=== PATIENT | female | born 1955 | race Caucasian/White ===

== ENCOUNTER 2017-02-07 10:06 | Outpatient (CLI) ==
--- NOTE | 2017-02-07 11:02 | DI ---
EXAM: PA and lateral views of the chest HISTORY: Short of air COMPARISON: 07/14/2009 FINDINGS: The lungs are borderline hyperexpanded. No focal consolidation, pleural effusion or pneumothorax is seen. The cardiomediastinal silhouette is within normal limits. IMPRESSION: No acute cardiopulmonary findings.
--- NOTE | 2017-02-07 11:12 | US ---
EXAM: Carotid ultrasound HISTORY: Abdominal pain, syncope with shortness of air COMPARISON: None TECHNIQUE: Carotid ultrasound was performed using gilbert scale, color, and Doppler imaging was perfor med. FINDINGS: Right carotid: There is mild atherosclerosis without significant visualized area of narrowing. Pea k systolic velocity measurement in the right internal carotid artery is 1.0 meters per second. End- diastolic velocity measurement in the right internal carotid artery is 0.3 meters per second. Right internal to common carotid artery peak systolic velocity ratio is 1.2. Flow in the right vertebral artery is antegrade. Left carotid: There is mild atherosclerosis without significant visualized area of narrowing. Peak systolic velocity measurement in the left internal carotid artery is 1.2 meters per second. End-di astolic velocity measurement in the left internal carotid artery is 0.6 meters per second. Left int ernal to common carotid artery peak systolic velocity ratio measures 1.8. Flow in the left vertebra l artery is antegrade. IMPRESSION: 1. Right internal carotid: No hemodynamically significant stenosis 2. Left internal carotid: No hemodynamically significant stenosis
--- NOTE | 2017-02-07 11:13 | US ---
EXAM: Ultrasound Aorta HISTORY: Abdominal pain and shortness of air COMPARISON: None TECHNIQUE: Ultrasound aorta was performed. FINDINGS: Atherosclerosis. Measurements are AP by transverse. Proximal aorta: 2.6 x 2.0 cm Mid aorta: 1.7 x 1.8 cm Distal aorta: 1.4 x 1.6 cm Right iliac: 0.8 x 0.8 cm Left iliac: 0.8 x 0.8 cm IMPRESSION: No abdominal aortic aneurysm.
--- NOTE | 2017-02-10 12:16 | HOLTER ---
PATIENT INFORMATION AND COMMENTS Indications: NEAR SYNCOPE __ Patient Medications: NONE __ Pre-procedure Summary: Protocol: Standard Heart Rate Started: 02/07/17 1116 Minimum: 55 BPM Weight: 139 LBS Ended: 02/08/17 1043 Maximum: 174 BPM Height: 67" Duration: 23 HRS 27 MIN Average: 90 BPM _ INTERPRETATIONS/OBSERVATIONS: 1. BASIC RHYTHM: SINUS, RATE 60 TO 170 BPM, AVERAGE 90 BPM 2. INFREQUENT PAC'S AND PVC'S 3. TWO RUNS OF SVT WITH RATE OF 170 BPM (12 BEATS) 4. NO ST-T WAVE CHANGES 5. NO CORRELATION WITH ACTIVITY LOG MTDD
== END 2017-02-07 10:07 | disposition home or self-care (01) ==
LOC: RAD 10:06
PROVIDERS: ATTEND Internal Medicine
DX: R55 Syncope and collapse (principal); R10.9 Unspecified abdominal pain
CPT/HCPCS: 76775

== ENCOUNTER 2018-01-20 12:38 | Emergency (ER) | payer OTHER ==
[2018-01-20 12:46] VITALS: BP 138/81; TEMP 97.6; BMI 21.9
--- NOTE | 2018-01-20 14:03 | ED.PDOC ---
General ED Provider: Dr. TEMITOPE MONROY Chief Complaint: Non-specific Complaint Stated Complaint: Sustained puncture wound to the dorsal aspect of her lt mid forearm when she was cleaning [employer] and accidently brushed against a loose piece of wood and a splinter. Recognized today that she had a approximately 6 cm area of suspected retained wood Time Seen by Physician: 15:15 Mode of Arrival: Walk-In Information Source: Patient Exam Limitations: No limitations Primary Care Provider: JORGE REYNA Nursing and Triage Documentation Reviewed and Agree: Yes Reviewed sepsis parameters & appropriate labs ordered?: Yes System Inflammatory Response Syndrome: Not Applicable Sepsis Protocol: For patient's 13 years and over: Temp is 96.8 and below OR 101 and greater Pulse >90 BPM Resp >20/minute Acutely Altered Mental Status Are patient's symptoms suggestive of a new infection, such as: -Pneumonia -Skin, Soft Tissue -Endocarditis -UTI -Bone, Joint Infection -Implantable Device -Acute Abdominal Infection -Wound Infection -Meningitis -Blood Stream Catheter Infection -Unknown System Inflammatory Response Syndrome: Not Applicable Trauma/Injury Complaint Exam - Trauma Complaint/Exam Location of Pain or Injury: Reports: LUE, Other (puncture wound-foreign object imbedde in subcutaneous region ) Mechanism of Injury: Reports: Penetrating trauma Symptoms Are: Still present Timing of Treatment: Immediate Initial Severity: Mild Current Severity: Mild Character: Reports: Burning, Sharp, Stabbing Aggravating: Reports: Movement Alleviating: Reports: Rest Associated Signs and Symptoms: Denies: LOC, Confusion, Memory loss, Lethargy, Vomiting, Bleeding, Bruising, Swelling, Extremity disuse, Painful respiration, Hoarseness, Dysphagia, Hemoptysis, Significant blood loss : No Penetrating Injury Risk Factors: Reports: None Differential Diagnoses: Other (puncture) Review of Systems - Review Of Systems Constitutional: Reports: No symptoms Eyes: Reports: No symptoms Ears, Nose, Mouth, Throat: Reports: No symptoms Respiratory: Reports: No symptoms Cardiac: Reports: No symptoms GI: Reports: No symptoms : Reports: No symptoms Musculoskeletal: Reports: No symptoms Skin: Reports: No symptoms, Bruising Neurological: Reports: No symptoms Endocrine: Reports: No symptoms Hematologic/Lymphatic: Reports: No symptoms All Other Systems: Reviewed and Negative Past Medical History - Past Medical History Previously Healthy: Yes Endocrine: Reports: None Cardiovascular: Reports: None Respiratory: Reports: None Hematological: Reports: None Gastrointestinal: Reports: None Genitourinary: Reports: None Neuro/Psych: Reports: None Musculoskeletal: Reports: None Cancer: Reports: None Last Menstrual Period: none - Surgical History General Surgical History: Reports: None - Family History Family History: Reports: None - Social History Smoking Status: Current every day smoker, Light tobacco smoker Hx Substance Use: No Alcohol Screening: None - Immunizations Tetanus Shot up to Date: No Physical Exam - Physical Exam Appearance: Well-appearing, No pain distress, Well-nourished Eyes: ETHAN, EOMI, Conjunctiva clear ENT: Ears normal, Nose normal, Oropharynx normal Respiratory: Airway patent, Breath sounds clear, Breath sounds equal, Respirations nonlabored Cardiovascular: RRR, Pulses normal, No rub, No murmur GI/: Soft, Nontender, No masses, Bowel sounds normal, No Organomegaly Musculoskeletal: Normal strength, ROM intact, No edema, No calf tenderness Skin: Warm (puncture wound noted ), Dry, Normal color Neurological: Sensation intact, Motor intact, Reflexes intact, Cranial nerves intact, Alert, Oriented Psychiatric: Affect appropriate, Mood appropriate Procedures - Foreign Body Removal Location of Foreign Object: Dorsal aspect Lt Midforearm Foreign Object: 5 cm wooded spinter Depth of Object: subcuticular Type of Anesthesia: Local (1 %Lidocaine) Medication Used: Yes: Lidocaine Prep: Saline, Betadine, Hibiclens, Scrub Irrigation: Yes Skin Incised: Yes (1 cm dorsolateral aspect of area of foreign object) Instruments Used: Yes: Forceps Foreign Body Identified and Removed: Yes (Sutured with 1 simple suture 3-0 Nylon ) Re-Evaluation - Re-Evaluation Time of Re-Evaluation: 16:15 Status: Improved Vital Signs Stable: Yes Appearance: NAD Lungs: Clear Skin: Warm and Dry Neuro: Alert and Oriented X3 CV: RRR Critical Care Note - Critical Care Note Total Time (mins): 0 Course - Course Orders, Labs, Meds: Orders Category Date Time Status CT FOREARM LEFT WO CONTRAST Stat RADS 01/20/18 14:05 Completed Vital Signs: Temp Pulse Resp BP Pulse Ox 01/20/18 12:41 97.6 F 65 16 138/81 98 Departure - Departure Time of Disposition: 15:50 Disposition: HOME SELF-CARE Discharge Problem: Foreign body (FB) in soft tissue Instructions: Soft Tissue Foreign Body (ED) Condition: Good Pt referred to PMD for follow-up: Yes (1 week /or return to ER for re eval and suture removal) IPMP verified?: No Additional Instructions: keep clean and dry suture out in 7 days Allergies/Adverse Reactions: Allergies No Known Allergies Allergy (Verified 01/20/18 12:45) Home Medications: Ambulatory Orders Aspirin 81 mg PO DAILY 01/20/18 Disposition Discussed With: Patient
--- NOTE | 2018-01-20 14:54 | CT ---
Exam: CT of the left forearm without intravenous contrast. Comparison: None available. Reason for exam: Foreign object FINDINGS: No acute fracture or malalignment in the left forearm. The cortices are intact. No unexp lained radiopaque retained foreign bodies are seen within the soft tissues of the left forearm. No d iscrete fluid collection or skin thickening is seen. Inflammatory changes are seen adjacent to the el bow Impression: 1. No acute fracture or malalignment in the left forearm. 2. No unexplained radiopaque retained foreign body. 3. Inflammatory changes in the soft tissues adjacent to the elbow without a drainable fluid collecti on
== END 2018-01-20 16:27 | disposition home or self-care (01) ==
LOC: ED 12:38
DX: S51.842A Puncture wound with foreign body of left forearm, initial encounter (principal); W45.8XXA Other foreign body or object entering through skin, initial encounter; F17.210 Nicotine dependence, cigarettes, uncomplicated
CPT/HCPCS: 99282